=== PATIENT | female | born 1985 | race Caucasian/White ===

== ENCOUNTER 2016-06-13 18:17 | Emergency (ER) | payer BC ==
[2016-06-13] MEDS ORDERED: SUCRALFATE 1 G/10 ML UDC PO ONE (18:27)
[2016-06-13] MEDS ORDERED: MAG HYDROX/ALUMINUM HYD/SIMETH 30 ML UDC PO ONE (18:27)
[2016-06-13] MEDS ORDERED: LIDOCAINE HCL 20 ML UDC MM ONE (18:27)
[2016-06-13] MEDS ORDERED: NORMAL SALINE 1,000 ML IV ONE (18:28)
[2016-06-13 18:45] LABS: Hematocrit 40.5 % (37.0-47.0); Hemoglobin 13.8 gm/dL (12.5-16.0); Mean Cell Volume 84.6 fl (78-100); Mean Corpuscular Hemoglobin 28.8 pg (27-31); Mean Corpuscular Hgb Conc 34.1 g/dl (32-36); Mean Platelet Volume 9.7 fl (6.0-9.5); Neutrophil # 4.9 K/mm3 (1.3-6.0); Neutrophil % 68.8 % (42-75.0); Platelet Count 244 K/mm3 (150-450); Red Blood Count 4.79 M/mm3 (4.2-5.4); Red Cell Distribution Width 12.1 % (11.5-14.0); White Blood Count 7.1 K/mm3 (4.0-10.5)
[2016-06-13 19:07] LABS: Prothrombin Time (Patient) 10.8 Seconds (9.4-11.4)
[2016-06-13 19:09] VITALS: BP 118/78
[2016-06-13 19:14] LABS: INR 1.04 INR (0.90-1.10); Partial Thrombolplastin Time 23.1 Seconds (24-32)
[2016-06-13 19:15] LABS: ALT 46 U/L (19-67); AST 81 U/L (0-48); Albumin * 3.8 gm/dl (3.4-5.0); Alkaline Phosphatase * 126 U/L (50-170); Amylase * 63 U/L (25-115); Anion Gap 11.9 mmol/L (6.8-13.8); BUN/Creatinine Ratio 17.5 (9.0-21.6); Bilirubin, Total 0.5 mg/dL (0.0-1.1); Blood Urea Nitrogen 17 mg/dL (3-23); Ca. Corrected For Albumin 8.6 mg/dL (8.4-10.2); Calcium * 8.8 mg/dL (7.9-10.9); Carbon Dioxide 27.7 mmol/L (24-32.6); Chloride 106 mmol/L (97-106); Glucose * 132 mg/dL (70-110); Lipase 199 U/L (73-393); Potassium 3.6 mmol/L (3.4-4.6); Sodium 142 mmol/L (132-142); Total Protein 7.1 gm/dL (6.2-8.2); Troponin I Less than 0.017 ng/ml (0.00-0.10)
--- OUTSIDE RECORDS SUMMARY | 2016-06-13 19:40 | XMS REPORT | Continuity of Care Document ---
:1985 Author Organization [facility] ([facility]) Address [address] [place] [address] Phone [phone] Care Team Providers Name Role Phone Erwin Durham Primary Care Provider [phone] Source Comments This disclosure is being made pursuant to the Care Everywhere program, applicable federal and state laws, and may not contain all informaitonavailable regarding this patient.[facility] ([facility]) Active Allergies and Adverse Reactions Allergen Noted Date Severity Reactions Comments Ciprofloxacin 08/21/2011 Urticaria (Hives) Current Medications Prescription Sig. Disp. Refills Start Date End Date Status venlafaxine 150 mg XR Take 150 mg by mouth Active tablet daily. atenolol 25 mg tablet Take 1 Tab by mouth 2 60 Tab 11 07/19/2013 Active times daily. Indications: HYPERTENSION Active Problems Problem Noted Date History of preeclampsia x 2 07/14/2013 Chronic hypertension with superimposed preeclampsia without severe 07/13/2013 features Resolved Problems Problem Noted Date Resolved Date Chronic hypertension in 07/13/2013 07/13/2013 Thyroiditis 06/20/2012 07/13/2013 Abdominal pain 09/07/2011 07/13/2013 Abdominal pain, left lower quadrant 08/21/2011 07/13/2013 Social History Tobacco Use Types Packs/Day Years Used Date Never Smoker Smokeless Tobacco: Never Used Alcohol Use Drinks/Week oz/Week Comments Yes social drinker, not during Last Filed Vital Signs Vital Sign Reading Time Taken Blood Pressure 138/92 07/19/2013 4:26 PM CDT Pulse 69 07/19/2013 4:26 PM CDT Temperature 36.2 C (97.2 F) 07/19/2013 4:26 PM CDT Respiratory Rate 18 07/19/2013 4:26 PM CDT Height 1.66 m (5' 5.35") 06/20/2012 9:00 AM CDT Weight 110.3 kg (243 lb 2.7 oz) 07/17/2013 8:00 AM CDT Body Mass Index 40.03 07/17/2013 8:00 AM CDT Oxygen Saturation 96% 08/24/2011 12:00 PM CDT Plan of Care Health Maintenance Due Date Last Done Comments Hepatitis B Vaccine (1 of 3 - Primary Series) 1985 Tdap Vaccine 08/03/1994 Lipid Disorder Screening 08/03/2001 MMR Vaccine 08/03/2001 Td Vaccine 08/03/2001 Varicella Vaccine (1 of 2 - Adult - No Evidence of 08/03/2001 Immunity) Cervical Cancer Screening 08/03/2013 Influenza Vaccine: Seasonal (#1) 09/08/2015 Results from Last 3 Months Not on file
--- NOTE | 2016-06-13 19:45 | ERNOTE ---
Abdominal HPI - Narrative Date of Service: 06/13/16 - General Chief Complaint: Abdominal Pain Time Seen by Provider: 06/13/16 18:52 Source: patient Exam Limitations: no limitations - Immun/Allergies/Home Medications Immunizatons: IMMUNIZATION HX Immunizations Up to Date Yes History of Influenza Vaccine Yes Hx Pneumococcal Vaccination More Information Required Allergies/Adverse Reactions: Allergies ciprofloxacin [From Cipro] Allergy (Intermediate, Verified 06/13/16 18:29) Hives Home Medications: HOME MEDICATIONS Venlafaxine HCl [Effexor Xr] 150 mg PO DAILY 02/09/12 [Last Taken 08/02/13 21:00 ] Ibuprofen [Motrin] 200 - 800 mg PO Q6H PRN #0 tablet 08/05/13 [Last Taken Unknown] Atenolol [Tenormin] 25 mg PO BID 11/29/14 [Last Taken Unknown] - History of Present Illness Narrative: 30-year-old female presenting to the emergency room for epigastric pain. Patient states that she ate a cheeseburger and cheese curds for lunch and shortly after that she started developing epigastric pain. Patient states that she epigastric pain has increased amounts she came to the emergency room. Date (Duration): 06/13/16 Timing: getting worse Quality: mild Activities at Onset: none Associated Symptoms: Present: denies symptoms Prior Abdominal Problems: Present: none Review of Systems - Narrative Narrative: patient states she has had several episodes of this before and they have resolved, but this one she has not gotten better - Review of Systems Constitutional: Present: no symptoms reported. Absent: fever, chills, weakness EYE: Present: no symptoms reported ENT: Present: no symptoms reported Respiratory: Present: no symptoms reported Cardiology: Present: no symptoms reported. Absent: chest pain, palpitations, edema Gastrointestinal/Abdominal: Present: See HPI, nausea, other - epigastric pain Genitourinary: Present: no symptoms reported Musculoskeletal: Present: no symptoms reported Skin: Present: no symptoms reported Neurological: Present: no symptoms reported Endocrine: Present: no symptoms reported Hematologic/Lymphatic: Present: no symptoms reported Psych: Present: no symptoms reported - Patient's Past Medical History Patient History - Medical: Depression, Migraines Patient History - Cancer: No Hx of Cancer Patient History - Surgical Procedures: Appendectomy, Other Patient History - Other: None LMP (Calendar): 01/19/16 - Social History Living Situations: home Smoking Status: Never smoker Alcohol Use: none Drug Use: none - Immunizations Immunizations Up to Date: Yes Hx Pneumococcal Vaccination: More Information Required to Determine History of Influenza Vaccine: Yes Physical Exam - Physical Exam General Appearance: Present: wd/wn, alert Eye Exam: Normal inspection: bilateral Ears, Nose, Throat: Present: normal ENT inspection Neck: Present: normal inspection, nontender Respiratory: Present: no respiratory distress, normal breath sounds, lungs clear Cardiovascular/Chest: Present: regular rate, rhythm, no murmur, normal peripheral pulses Gastrointestinal/Abdominal: Present: normal bowel sounds, soft, other - epigastric pain Extremity Exam: Present: normal inspection, normal range of motion, no edema Neurological Exam: Present: alert, oriented, normal mood/affect, no motor/ sensory deficits Skin Exam: Present: normal color, diaphoresis Lymphatic Exam: Present: no adenopathy ED Progress - Results and Orders Patient's Lab Results:: I have reviewed the patient's lab results. Results and Orders: no acute process - Vital Signs Patient's Vital Signs:: I have reviewed the patient's vital signs. Vital Signs: Vital Signs 06/13/16 06/13/16 18:25 19:08 Temperature 35.9 C L Pulse Rate 79 97 Respiratory 18 17 Rate Blood Pressure 126/81 118/78 O2 Sat by Pulse 99 98 Oximetry - EKG EKG: NSR EKG read: Reviewed by me EKG Comments: interp by ER attending - Progress/Reassessment Chief Complaint: Abdominal Pain Progress:: Improved Plan - Plan Plan: patient is to follow up with her PCP in the AM. Patient states she has had these epigastric heart burn episodes for the past few weeks and they have progressively gotten worse. Departure - Departure Clinical Impression: Epigastric discomfort Disposition: Home Follow Up Needed Condition: Stable Instructions: Heartburn, [id number] Additional Instructions: Continue previous home medications as directed. Take [id number] antacids as needed for epigastric discomfort. Return to the emergency room if you have any new symptoms or any symptoms of chest pain or epigastric pain you are Unable to control with [id number] medications. Follow-up with her primary care physician regarding her recent diagnosis. Referrals: Erwin Durham DO [Primary Care Provider] -
== END 2016-06-13 20:00 | disposition home or self-care (01) ==
LOC: ER 18:17
DX: R10.13 Epigastric pain (principal); F32.89 Other specified depressive episodes

== ENCOUNTER 2016-07-28 07:35 | Day surgery (SDC) | payer BC ==
[~2016-07-28 07:35] MED LIST: RINGERS SOLUTION,LACTATED 1,000 ML IV PRN; ceFAZolin SODIUM 2 GM in DEXTROSE 5 % IN WATER 50 ML IV PRN
[2016-07-28] MEDS ORDERED: RINGERS SOLUTION,LACTATED 1,000 ML IV ONE ×2 (08:02→10:45)
[2016-07-28] MEDS ORDERED: ISOPROPYL ALCOHOL 480 APPL BTL MC ONE (10:25)
[2016-07-28] MEDS ORDERED: BUPIVACAINE HCL/EPINEPHRINE 50 ML VIAL IJ ONE ×2 (10:30)
[2016-07-28] MEDS ORDERED: MUPIROCIN 22 APPL TUBE TP ONE (11:30)
[2016-07-28] MEDS ORDERED: oxyCODONE HCL/ACETAMINOPHEN 1 TAB TABLET PO ONE ×2 (11:45→14:00)
[2016-07-28] MEDS ORDERED: MORPHINE SULFATE 2 MG/ML DISP.SYRIN IV PRN (11:45)
[2016-07-28 15:33] VITALS: BP 137/81
--- NOTE | 2016-07-28 18:52 | OR ---
Operative Report - Dictated Report Narrative: DATE OF OPERATION: 07/28/2016 PREOPERATIVE DIAGNOSIS: Cholelithiasis and cholecystitis POSTOPERATIVE DIAGNOSIS: Cholelithiasis and cholecystitis (pathology pending). Significant colon and omental adhesions to the right lobe of the liver OPERATION: Laparoscopic cholecystectomy with lysis of adhesions SURGEON: PEPE Marquez MD ANESTHESIA Gen. gemini Forrester CRNA INDICATIONS FOR PROCEDURE: The patient is a 30-year-old female referred by Dr. Durham. She has had multiple attacks of epigastric and right upper quadrant pain prompting visits to the emergency room. She has been found to have multiple gallstones on ultrasound. FINDINGS: Multiple gallstones. Significant adhesions of the colon and omentum to the right lobe of the liver adjacent to the gallbladder requiring 15 minutes of operating time to address. NARRATIVE OF PROCEDURE: The patient was identified preoperatively. Prior to the administration of anesthetic a multidisciplinary timeout observed. With the patient in the supine position, SCDs were placed, 2 g of intravenous Ancef administered, and general endotracheal anesthetic administered. The patient's abdomen was prepped with Betadine solution and a generous operating field outlined with 4 sterile towels. The remainder the patient was covered with a sterile disposable drape. An infraumbilical skin incision was made. Dissection was carried along the umbilical stalk until the fascia of the linea alba was encountered. This was incised. The peritoneum was then elevated and incised to allow entry into the abdomen under direct vision. A Hussan cannula was placed, and the abdomen insufflated with CO2. The laparoscopic camera was introduced and the abdomen briefly explored. The gallbladder was seen to contain numerous stones. There were adhesions of the hepatic flexure of the colon and omentum to the undersurface of the right lobe of the liver adjacent to the gallbladder. Those portions of the stomach, liver, small and large intestine visualized appeared normal. Next under direct vision 3 additional working ports were inserted through separate skin incisions, one in the subxiphoid, one in the right upper quadrant, and one in the right flank. The gallbladder was decompressed with a needle and the puncture site grasped. The apex of the gallbladder was retracted cephalad. There was significant traction on the right lobe of the liver from the adhesions to the hepatic flexure. These were carefully lysed under direct vision which returned the colon to an anatomic position and improved exposure and retraction. The neck of the gallbladder was retracted laterally to expose the expected location of the cystic duct. The cystic duct was dissected free for a sufficient distance for confident identification. It was doubly clipped and divided. The cystic artery was identified doubly clipped and divided. The gallbladder was then removed from the liver bed by retrograde electrocautery dissection. Prior to severing the last attachments of the gallbladder the liver bed was inspected and found to be hemostatic with no evidence of bile leak. The previously placed clips were seen to be intact. The right upper quadrant was suctioned clean. The last attachments of the gallbladder were divided. It was placed in an Endobag and parked in the right upper quadrant. The smaller working ports were withdrawn under direct vision to ensure entry site hemostasis. The gallbladder was removed in conjunction with the Hussan cannula. The pneumoperitoneum was allowed to escape, and after receiving a correct sponge needle and instrument count attention was turned to closing the abdomen. The fascia and peritoneum at the umbilicus were approximated with interrupted sutures of #1 Vicryl. Skin incisions were approximated with interrupted vertical mattress sutures of 4-0 nylon. The operative sites were washed and dried. Dressings of Bactroban ointment and large Band-Aids were applied to the small port sites. The umbilical incision was dressed with Bactroban ointment, 2 x 2, large Band-Aid and Medipore tape. The operative procedure was terminated at this point. The patient tolerated the anesthetic and procedure well without complication. There was no measurable blood loss. The gallbladder was submitted to pathology. 0.5% Marcaine with epinephrine was used for local anesthetic infiltration. The patient was transferred to the recovery room awake, extubated, and in stable condition. The patient remained stable throughout a period of postoperative observation. She was able to tolerate po intake and was up without assistance. Her pain was controlled with po Percocet. Her dressings remained dry. I reviewed the operative findings with her and she will be given copies of the photographs which appear in the medical record. The patient was discharged home with instructions not to lift and not to drive. She is to leave the current dressing dry and intact for 48 hours, but then may shower and change the dressing daily or as needed. She was given phone numbers to call prn signs of wound infection or hematoma. The patient was given a prescription for Percocet 5/325 mg #30 1-2 po Q4-6hrs prn pain. A return office appointment was made for 08/05/2016. Reviewed and electronically signed
== END 2016-07-28 07:36 | disposition home or self-care (01) ==
LOC: AMB 07:35
PROVIDERS: ATTEND Surgery
PROC: 0DNE4ZZ Release Large Intestine, Percutaneous Endoscopic Approach (ICD-10-PCS; 2016-07-28)
PROC: 0FT44ZZ Resection of Gallbladder, Percutaneous Endoscopic Approach (ICD-10-PCS; principal; 2016-07-28 09:00)
DX: K80.10 Calculus of gallbladder with chronic cholecystitis without obstruction (principal); K66.0 Peritoneal adhesions (postprocedural) (postinfection); I10 Essential (primary) hypertension; D64.9 Anemia, unspecified; F32.9 Major depressive disorder, single episode, unspecified; E66.9 Obesity, unspecified; Z68.34 Body mass index [BMI] 34.0-34.9, adult